=== PATIENT | female | born 1955 | race Hispanic/Latino ===

== ENCOUNTER → 2021-09-18 | Day surgery (SDC) | payer MEDICARE ==
[2021-09-16 09:00] LABS: BASOPHILS # (AUTO) 0.1 (0.0-0.1); BASOPHILS % 0.7 % (0.0-1.0); EOSINOPHILS # (AUTO) 0.3 (0.0-0.4); EOSINOPHILS % 4.1 % (0.0-6.0); HEMATOCRIT 42.9 % (34.2-44.1); HEMOGLOBIN 13.1 g/dL (12.0-16.0); LYMPHOCYTES # (AUTO) 2.7 (1.0-3.2); LYMPHOCYTES % 31.9 % (18.0-39.1); MEAN CORPUSCULAR HEMOGLOBIN 26.7 pg (28-32); MEAN CORPUSCULAR HGB CONC 30.5 g/dL (31-35); MEAN CORPUSCULAR VOLUME 87.4 fL (81-99); MONOCYTES # (AUTO) 0.7 (0.2-0.8); NEUTROPHILS # (AUTO) 4.6 (2.1-6.9); NEUTROPHILS % 54.8 % (38.7-80.0); PLATELET COUNT 273 x10e3/uL (140-360); RED BLOOD COUNT 4.91 x10e6/uL (3.6-5.1); RED CELL DISTRIBUTION WIDTH 14.5 % (11.7-14.4)
[~2021-09-18] MED LIST: ATORVASTATIN CA20 MG PO; CELEBREX200 MG PO; FAMOTIDINE20 MG PO; GABAPENTIN100 MG PO; GLYBURIDE5 MG PO; LABETALOL HCL5 MG/ML PO; LEVOTHYROXINE112 MCG PO; LIDOCAINE HCL 2% LOCAL INJ 5 ML SDV VIAL INJ ONE; LOSARTAN POTASS25 MG PO; METFORMIN HCL1000 MG PO; MIDAZOLAM HCL 2 MG/2 ML VIAL ONE; NOVOLIN N100 UNIT/1 SC; PROPOFOL IV EMULSION 10 MG/ML 20 ML VIAL ONE; SOLIQUA 100 UNIT3 ML; TYLENOL WITH C1 EACH PO; [UNRECOGNIZED DRUG - OTHER] PO
[2021-09-18 08:45] VITALS: BP 133/60
== END | disposition home or self-care (01) ==
LOC: OR 05:58
PROVIDERS: ATTEND Internal Medicine Gastroenterology
DX: K29.50 Unspecified chronic gastritis without bleeding (principal); B96.81 Helicobacter pylori [H. pylori] as the cause of diseases classified elsewhere; K31.89 Other diseases of stomach and duodenum; K57.30 Diverticulosis of large intestine without perforation or abscess without bleeding; K64.8 Other hemorrhoids; Z71.3 Dietary counseling and surveillance; E11.9 Type 2 diabetes mellitus without complications; E03.9 Hypothyroidism, unspecified; I10 Essential (primary) hypertension; E66.01 Morbid (severe) obesity due to excess calories; Z88.0 Allergy status to penicillin; Z88.8 Allergy status to other drugs, medicaments and biological substances; Z91.040 Latex allergy status; Z01.810 Encounter for preprocedural cardiovascular examination; Z01.812 Encounter for preprocedural laboratory examination; Z20.822 Contact with and (suspected) exposure to COVID-19; Z79.4 Long term (current) use of insulin; Z68.41 Body mass index [BMI] 40.0-44.9, adult
CPT/HCPCS: 36415 ×2; 43239; 45378; 82948; 85025; 93005; J2001; J2250; J2704; U0002